=== PATIENT | female | born 1975 | race Caucasian/White ===

== ENCOUNTER → 2020-07-08 | Outpatient (CLI) | payer MEDICARE ==
[~2020-07-08] MED LIST: CATHETER FLUSH 10 ML SYR IV PRN; HOLD METFORMIN - RECEIVED CONTRAST 20 ML VIAL IV SCH; IOHEXOL 350 MG/ML 100 ML (OMNIPAQUE 350) VIAL IV ONE; NS 100 ML (IVPB) BAG IV ONE
--- NOTE | 2020-07-08 15:38 | Diagnostic Imaging Report ---
PROCEDURE: Pelvic comp/transvaginal sonogram. TECHNIQUE: Complete transabdominal and transvaginal pelvic ultrasound was performed. In addition, limited pelvic Doppler was performed. INDICATION: Pelvic pain. Uterus is anteverted measuring 8.1 x 4.4 x 4.8 cm. Endometrium is 4 mm in thickness. No myometrial mass is detected. The right ovary is surgically absent. Left ovary measures 3.1 x 1.5 x 2.0 cm. There is blood flow to the left ovary. No adnexal mass or free fluid is identified. IMPRESSION: Surgically absent right ovary. The study is otherwise unremarkable. Dictated by: Dictated on workstation # [id number]
--- NOTE | 2020-07-08 19:29 | Diagnostic Imaging Report ---
Procedure: CT pelvis with and without contrast. Technique: After oral contrast administration, imaging was obtained from the iliac crest to the lesser trochanters. Repeat imaging was performed after intravenous contrast administration. Auto Exposure Controls were utilized during the CT exam to meet ALARA standards for radiation dose reduction. Date: July 08, 2020. Indication: 45-year-old female, history of cervical cancer. Lower pelvic pain. Comparison: Ultrasound pelvis July 08, 2020. Findings: CT has limitations for evaluation of the cervix and uterus as well as the adnexa. There is no clearly identified concerning adnexal mass on CT. There are atherosclerotic calcifications noted. There is no identified abnormally enlarged lymph node in the pelvis which specifically meets CT size criteria for adenopathy. The visualized portions of the intestinal tract are not distended. The appendix is unremarkable. There is no free pelvic fluid or focal drainable fluid collection. There is no identified abnormal urinary bladder wall thickening or identified urothelial filling defect in the included field of view of imaging. There is no identified bone lesion suspicious for a metastatic lesion. There is no otherwise noted acute bony abnormality. Impression: 1. CT has limitations for assessment of the cervix and additional portions of the uterus. 2. No evidence of metastatic disease in the pelvis. 3. No identified adnexal mass or other pelvic mass or focal fluid collection. 4. There are atherosclerotic calcifications noted. 5. Additional CT assessment of the pelvis is grossly unremarkable. Dictated by: Dictated on workstation # [id number]
--- NOTE | 2020-07-09 18:39 | Diagnostic Imaging Report ---
INDICATION: Routine screening. COMPARISON is made with prior mammogram from 07/29/2019. 2-D and 3-D bilateral screening mammography was performed with CAD. Scattered fibroglandular densities are identified bilaterally. No mass or malignant appearing microcalcifications are seen. Axillae are unremarkable. IMPRESSION: BI-RADS Category 1. No mammographic features suspicious for malignancy are identified. ACR BI-RADS Category 1: Negative. Result letter will be mailed to the patient. Note: At least 10% of breast cancer is not imaged by mammography. Dictated by: Dictated on workstation # [id number]
== END ==
LOC: RAD 13:00
PROVIDERS: ATTEND Obstetrics & Gynecology
DX: Z12.31 Encounter for screening mammogram for malignant neoplasm of breast (principal); I70.8 Atherosclerosis of other arteries; R19.09 Other intra-abdominal and pelvic swelling, mass and lump; R10.2 Pelvic and perineal pain; Z85.41 Personal history of malignant neoplasm of cervix uteri; Z90.721 Acquired absence of ovaries, unilateral
CPT/HCPCS: 72194; 76830; 76856; 77063; 77067

== ENCOUNTER 2020-08-17 05:52 | Outpatient (CLI) | payer MEDICARE ==
[~2020-08-17] VITALS: Ht 160 cm; Wt 75.5 kg
[2020-08-18] MEDS ORDERED: FAMO10TA43 PO (11:34)
[2020-08-18] MEDS ORDERED: RT-ALBUINH IH (11:34)
[2020-08-18] MEDS ORDERED: FLUT1AER IH (11:34)
[2020-08-18] MEDS ORDERED: CETI10TA17 PO (11:34)
== END 2020-08-18 12:00 | disposition home or self-care (01) ==
LOC: PREOP 05:52
PROVIDERS: ATTEND Obstetrics & Gynecology
DX: Z01.818 Encounter for other preprocedural examination (principal)

== ENCOUNTER 2020-08-24 07:35 | Day surgery (SDC) | payer MEDICARE ==
[~2020-08-24] VITALS: Ht 160 cm; Wt 75.5 kg
[2020-08-24] VITALS (13 sets, daily range): BP systolic 63–128; BP diastolic 52–99
[~2020-08-24 07:35] MED LIST changes: -CATHETER FLUSH 10 ML SYR IV PRN; +CETI10TA17 PO; +FAMO10TA43 PO; +FLUT1AER IH; -HOLD METFORMIN - RECEIVED CONTRAST 20 ML VIAL IV SCH; -IOHEXOL 350 MG/ML 100 ML (OMNIPAQUE 350) VIAL IV ONE; -NS 100 ML (IVPB) BAG IV ONE; +RT-ALBUINH IH
[2020-08-24] MEDS ORDERED: LIDOCAINE/EPI 1%-1:100,000 (XYLOCAINE) 20ML ONE (07:56)
[2020-08-24 08:22] LABS: CLARITY,URINE CLOUDY; COLOR,URINE ORANGE; GLUCOSE, URINE (UA) NEGATIVE (NEGATIVE); KETONES,URINE TRACE (NEGATIVE); LEUKOCYTE ESTERASE ,URINE 2+ (NEGATIVE); NITRITE,URINE NEGATIVE (NEGATIVE); PH,URINE 5.5 (5-9); PROTEIN,URINE TRACE (NEGATIVE)
[2020-08-24 08:25] LABS: BASOPHILS # (AUTO) 0.1 10^3/uL (0.0-0.1); BASOPHILS % (AUTO) 1 % (0-10); EOSINOPHILS # (AUTO) 0.1 10^3/uL (0.0-0.3); EOSINOPHILS % (AUTO) 1 % (0-10); HEMATOCRIT 47 % (35-52); HEMOGLOBIN 16.2 g/dL (11.5-16.0); LYMPHOCYTES % (AUTO) 30 % (12-44); MEAN CORPUSCULAR HEMOGLOBIN 32 pg (25-34); MEAN CORPUSCULAR HGB CONC 34 g/dL (32-36); MEAN CORPUSCULAR VOLUME 95 fL (80-99); MEAN PLATELET VOLUME 10.3 fL (9.0-12.2); MONOCYTES # (AUTO) 0.8 10^3/uL (0.0-1.0); MONOCYTES % (AUTO) 6 % (0-12); NEUTROPHILS # (AUTO) 8.4 10^3/uL (1.8-7.8); NEUTROPHILS % (AUTO) 63 % (42-75); PLATELET COUNT 206 10^3/uL (130-400); WHITE BLOOD COUNT 13.4 10^3/uL (4.3-11.0)
[2020-08-24] MEDS ORDERED: WATER (STERILE) FOR INJECTION 10 ML ONE (08:29)
[2020-08-24] MEDS ORDERED: ceFAZolin INJECTION 1,000 MG ONE (08:29)
[2020-08-24 08:33] LABS: AMORPHOUS SEDIMENT,UR MOD AMOR URATES /LPF; BACTERIA,URINE LARGE /HPF; BILIRUBIN,URINE NEGATIVE (NEGATIVE); SQUAMOUS EPITHELIAL CELL,UR 25-50 /HPF
--- NOTE | 2020-08-24 09:01 | Progress Note-Pre Operative ---
Pre-Operative Progress Note H&P Reviewed The H&P was reviewed, patient examined and no changes noted. Date Seen by Provider: Aug 24, 2020 Time Seen by Provider: 09:00 Date H&P Reviewed: Aug 24, 2020 Time H&P Reviewed: 09:00 Pre-Operative Diagnosis: abnormal uterine bleeding, history of cervical stenosis and dysplasia STEFFANY ELMORE DO Aug 24, 2020 09:01
[2020-08-24] MEDS ORDERED: fentaNYL INJ 100 MCG/2 ML AMP ONE ×2 (09:12→11:13)
[2020-08-24] MEDS ORDERED: MIDAZOLAM 2 MG/2 ML (VERSED) VIAL ONE (09:12)
[2020-08-24] MEDS ORDERED: ceFAZolin INJECTION 1,000 MG in WATER (STERILE) FOR INJECTION 10 ML IV ONE (09:15)
[2020-08-24] MEDS ORDERED: ONDANSETRON 4 MG/2 ML (SDV) Z0FRAN ONE (09:29)
[2020-08-24] MEDS ORDERED: proPOfol 200 MG/20 ML (DIPRIVAN) VIAL IV ONE (09:29)
[2020-08-24] MEDS ORDERED: ROCURONIUM 10 MG/ML 5 ML SYRINGE IV ONE (09:29)
[2020-08-24] MEDS ORDERED: GLYCOPYRROLATE 0.2 MG/ML (ROBINUL) 2 ML VIAL ONE (09:34)
[2020-08-24] MEDS ORDERED: NEOSTIGMINE 3 MG/3 ML VIAL ONE (09:34)
[2020-08-24] MEDS ORDERED: LIDOCAINE PF 0.5% 50 ML (XYLOCAINE) VIAL ONE (09:34)
[2020-08-24] MEDS ORDERED: SEVOFLURANE (ULTANE) 15 ML INHAL SOLN ONE ×2 (09:34→10:52)
[2020-08-24] MEDS: LACTATED RINGERS 1,000 ML IV PRN ×3 (09:55→16:58)
--- NOTE | 2020-08-24 10:56 | Operative Report ---
Operative Report Date of Procedure/Surgery Aug 24, 2020 Surgeon (s) STEFFANY ELMORE DO Line Service Attendant (s): NA Post-Operative Diagnosis AUB, Left ovarian cysts Procedure Performed RaTH, left partial salpingectomy, left ovarian cystectomy Description of Procedure Anesthesia Type: General Estimated blood loss (mL): 50ml Specimen(s) collected/removed uterus, left partial tube, left ovarian cyst wall Description of the Procedure After informed consent was obtained, patient was taken into the operating room where general anesthetic was found to be adequate. She was prepped and draped in the usual sterile fashion in the dorsal lithotomy position. A Schwartz catheter was placed. A speculum was placed in the vagina. The cervix was visualized and the anterior lip was grasped with a sharp toothed tenaculum. The uterus was sounded and depth was approximately 8 centimeters. I placed the Kalli device (8 cm) and a 3.0 cm collar was advanced over the cervix. I inserted the Kalli without difficulty, inflating the balloon and securing it around the fornix of the cervix. The collar was then secured with sutures at 12 o'clock. Attention was then turned to the patient's abdomen. The skin was injected with 0.25% Marcaine. A supraumbilical incision was made about 8 mm in length. A Veress needle was inserted and I confirmed intraabdominal placement with a drop in pressure and the saline drop test. The opening pressure was 8 mmHg. I then insufflated the abdomen to a maximum of 15 mmHg with warmed CO2 gas. I placed an additional 8 mm trocar in the left abdomen lateral to the umbilicus approximately 15 cm lateral. The second robotic port was placed about 12 cm lateral to the right umbilical placement. This was an 8 mm trocar. These were placed under direct visualization of the laparoscope. 0.25% Marcaine was injected prior to placement of all trocars. When all placements were confirmed, the patient was placed in steep Trendelenburg allowing adequate visualization and the robot was brought in for docking. The docking was accomplished without difficulty. I then took over the command of the robot utilizing the vessel sealer and monopolar aileen. There was an absent right tube and ovary and evidence of partial removal of the left tube. I grasped the round ligaments bilaterally and cauterized with bipolar cautery and then cut with my aileen. I opted to do the hysterectomy and then the cystectomy. The ovary appeared otherwise normal but had two large cystic area with what appeared to be serous fluid. I grasped the partial left tube and clamped the mesosalpinx with the Vessel sealer. As the right tube and ovary had already been removed, I moved my dissection to the posterior leaves of the broad ligament. I dissected the posterior leaves of the broad ligament off the uterine arteries skeletonizing them bilaterally. I then took a second clamp with the bipolar cautery and with the aileen, transected the vessels away from the lateral aspect to the cervical stroma. I dissected the anterior peritoneum off the lower uterine segment. I continually pushed the bladder back and I took excessively great care to avoid bladder injury. I then dissected in a V fashion towards the midline between the uterosacral ligaments. This allowed me to skeletonize the uterine vessels bilaterally. The balloon on the KALLI was insufflated. This allowed me to see the KALLI circumferentially. I then performed a colpotomy anteriorly and then amputate with cervix away from the vaginal fornix. I then continued the colpotomy circumferentially. Once this was performed, the offset press assistant removed the uterus and partial left tube, through the vagina. She then left the a lap sponge in the vagina to maintain the pneumoperitoneum. I now performed two cystectomies on the left ovary with laparoscopic aileen. The cysts appeared functional The ovarian cysts were dissected away from the left ovary with the aileen. Once this was done, I passed the cyst wall tissue to the offset press assistant through the colpotomy incision and the lap sponge was replaced in the vagina to maintain the pneumoperitoneum I then began closure of the vaginal cuff. The uterus was left in the vagina to maintain pneumoperitoneum. I closed the apices of the vaginal cuff with 2-0 Vicryl V lock sutures with a colposuspension through the uterosacral ligaments. This suspended the apices of the vaginal cuff. I extended this to the midline from both sides and overlapped the V lock sutures in the midline. Excellent closure is noted and hemostasis is achieved. All the needles were removed from the patient's abdomen. Now, the robotic instruments were removed and the robot was docked back to laparoscopy. The pelvis was irrigated. There was no active bleeding noted. Bilateral ureters were able to be seen the entire time during the dissection and following the hysterectomy. There was good hemostasis. The trocars were removed under direct visualization. The laparoscopic sites were visualized and found to be hemostatic. The trocar sites were injected with 0.25% Marcaine. The skin incisions were closed with 4-0 Monocryl in a subcuticular fashion and then with Dermabond. Op sites were placed over the incision sites. The instruments were removed from the vagina and I noted there were no abrasions. Sponge, lap, needle and instrument counts correct times two. Patient was awakened and taken to recovery in a stable condition. Findings of the Procedure Enlarged boggy uterus with uterine fibroids, 2 left ovarian cysts, absent right tube and ovary, absent partial left tube Allergies and Home Medications Allergies Coded Allergies: Penicillins (Verified Allergy, Unknown, Rash, 08/18/20) acetaminophen (Verified Allergy, Unknown, Hives, red face, 08/18/20) codeine (Verified Allergy, Unknown, Hives, 08/18/20) oxycodone (Verified Allergy, Unknown, Hives, red face, 08/18/20) paroxetine (Verified Allergy, Unknown, Nausea, 08/18/20) promethazine (Verified Allergy, Unknown, muscle jerking, 08/18/20) Home Medications Acetaminophen 500 Mg Tablet, 1,000 MG PO Q8HR Prescribed by: STEFFANY ELMORE on 08/25/20 08 Albuterol Sulfate 1 Puff Puff, 2 PUFF IH Q4H PRN for WHEEZING, (Reported) 1 PUFF = 90 MCG Last Action: Reviewed Cetirizine HCl 10 Mg Tablet, 10 MG PO DAILY, (Reported) Last Action: Reviewed Docusate Sodium 100 Mg Capsule, 100 MG PO BID Prescribed by: STEFFANY ELMORE on 08/25/20 08 Famotidine 10 Mg Tablet, 10 MG PO DAILY, (Reported) Last Action: Reviewed Fluticasone/Vilanterol 1 Each Blst.w.dev, 1 EACH IH DAILY, (Reported) Last Action: Reviewed Hydromorphone HCl 2 Mg Tablet, 2 MG PO Q6H PRN for PAIN-SEVERE (8-10) Prescribed by: STEFFANY ELMORE on 08/25/20 08 Ibuprofen 600 Mg Tablet, 600 MG PO Q6H Prescribed by: STEFFANY ELMORE on 08/25/20 0805 Simethicone 80 Mg Tab.chew, 80 MG PO Q2HR PRN for gas Prescribed by: STEFFANY ELMORE on 08/25/20 0805 Patient Home Medication List Home Medication List Reviewed: STEFFANY Yancey DO Aug 24, 2020 10:56
[2020-08-24] MEDS ORDERED: PATIENT MAY USE OWN MEDS, ALL MC SCH (11:00)
[2020-08-24] MEDS ORDERED: BISACODYL 10 MG SUPP (DULCOLAX) PR PRN (11:00)
[2020-08-24] MEDS ORDERED: LACTATED RINGERS 1,000 ML IV SCH (11:00)
[2020-08-24] MEDS ORDERED: CHLORASEPTIC LOZENGE MM PRN (11:00)
[2020-08-24] MEDS ORDERED: SIMETHICONE 80 MG (MYLICON) CHEW PO PRN (11:00)
[2020-08-24] MEDS ORDERED: KETOROLAC 30 MG/ML VIAL IV SCH (11:00)
--- NOTE | 2020-08-24 11:12 | Anesthesia-General Post-Op ---
General Patient Condition Mental Status/LOC: Same as Preop Cardiovascular: Satisfactory Nausea/Vomiting: Absent Respiratory: Satisfactory Pain: Controlled Complications: Absent Post Op Complications Complications None Follow Up Care/Instructions Patient Instructions None needed. Anesthesia/Patient Condition Patient Condition Patient is doing well, no complaints, stable vital signs, no apparent adverse anesthesia problems. No complications reported per nursing. CHRISTI HA CRNA Aug 24, 2020 11:12
[2020-08-24] MEDS ORDERED: KETOROLAC 30 MG/ML VIAL ONE (11:13)
[2020-08-24] MEDS ORDERED: LACTATED RINGERS 1,000 ML IV ONE (11:13)
[2020-08-24] MEDS ORDERED: morphine INJ 10 MG/ML 1ML (SYR OR VIAL) ONE (11:13)
[2020-08-24] MEDS ORDERED: morphine INJ 10 MG/ML 1ML (SYR OR VIAL) IVP ONE (11:15)
[2020-08-24] MEDS ORDERED: ONDANSETRON 4 MG/2 ML (SDV) Z0FRAN IVP PRN (11:15)
[2020-08-24] MEDS ORDERED: fentaNYL INJ 100 MCG/2 ML AMP IVP ONE (11:15)
[2020-08-24] MEDS: morphine INJ 4 MG/ML 1 ML (VIAL/SYRINGE) IVP PRN ×2 (12:34→14:51)
[2020-08-24] MEDS ORDERED: ACETAMINOPHEN 500 MG TAB (TYLENOL) PO SCH (14:00)
[2020-08-24] MEDS: KETOROLAC 30 MG/ML VIAL IV SCH (17:01)
[2020-08-24] MEDS: HYDROmorphone (DILAUDID) 2 MG TAB PO PRN ×2 (19:09→23:04)
[2020-08-24] MEDS: DOCUSATE SODIUM 100 MG (COLACE) CAP PO SCH (20:30)
[2020-08-24] MEDS ORDERED: traZODone 50 MG (DESYREL) TAB PO SCH (21:00)
[2020-08-25] VITALS: BP 128/73
[2020-08-25] MEDS: KETOROLAC 30 MG/ML VIAL IV SCH ×2 (00:05→05:51)
[2020-08-25] MEDS: LACTATED RINGERS 1,000 ML IV PRN (01:55)
[2020-08-25 04:00] VITALS: BP 111/59
[2020-08-25] MEDS: HYDROmorphone (DILAUDID) 2 MG TAB PO PRN ×3 (04:01→12:52)
[2020-08-25] MEDS ORDERED: DCS100C PO (08:05)
[2020-08-25] MEDS ORDERED: HYDR2TAB6 PO (08:05)
[2020-08-25] MEDS ORDERED: SMT80CT PO (08:05)
[2020-08-25] MEDS ORDERED: ACET-93 PO (08:05)
[2020-08-25] MEDS ORDERED: IBUP-844 PO (08:05)
--- NOTE | 2020-08-25 08:07 | Discharge Inst-Women's Service ---
Discharge Inst-Women's Serv Depart Medication/Instructions New, Converted or Re-Newed RX: Other (transmitted and handwritted) Final Diagnosis abnormal uterine bleeding uterine fibroids ovarian cyst Problems Reviewed?: Yes Consults/Follow Up Additional Follow Up: Yes (1-2 weeks for incision check; 8-10 weeks for post op visit) Activity Activity: Activity as Tolerated Driving Instructions: No Driving for 1 Week NO SMOKING: NO SMOKING Nothing Inside Vagina: No Douching, No [place], No Tampons Other Activity nothing in the vagina until cleared by physician Diet Discharge Diet: No Restrictions Symptoms to Report to DrSneha: Bleeding Excessive, Pain Increased, Fever Over 101 Degrees F, Vaginal Bleeding Increase, Vaginal Discharge Foul For Any Problems or Questions: Contact Your Physician Skin/Wound Care Infection Signs and Symptoms: Increased Redness, Foul Odor of Wound, Increased Drainage, Skin Itchy or Has a Rash, Increased Swelling, Temperature Above 101 F Operative Area Clean and Dry: You May Remove Bandage (in 3 days, or if soiled/wet) Stitches/[place]/Dermabond: Dermabond Bathing Instructions: STEFFANY Smith DO Aug 25, 2020 08:07
[2020-08-25] MEDS: DOCUSATE SODIUM 100 MG (COLACE) CAP PO SCH (08:51)
[2020-08-25 09:25] VITALS: BP 133/70
--- NOTE | 2020-08-25 09:31 | Anesthesia-General Post-Op ---
General Patient Condition Mental Status/LOC: Same as Preop Cardiovascular: Satisfactory Nausea/Vomiting: Absent Respiratory: Satisfactory Pain: Controlled Complications: Absent Post Op Complications Complications None Follow Up Care/Instructions Patient Instructions None needed. Anesthesia/Patient Condition Patient Condition Patient is doing well, no complaints, stable vital signs, no apparent adverse anesthesia problems. No complications reported per nursing. ZUNILDA RED CRNA Aug 25, 2020 09:31
[2020-08-25] MEDS ORDERED: IBUPROFEN 600 MG (MOTRIN) TAB PO SCH (11:00)
[2020-08-25 12:54] VITALS: BP 123/68
== END 2020-08-25 14:00 | disposition home or self-care (01) ==
LOC: SDC 07:35 → WS 12:10 → SDC 08-25 14:00
PROVIDERS: ATTEND Obstetrics & Gynecology
DX: D25.1 Intramural leiomyoma of uterus (principal); N72 Inflammatory disease of cervix uteri; N83.02 Follicular cyst of left ovary; J44.9 Chronic obstructive pulmonary disease, unspecified; K21.9 Gastro-esophageal reflux disease without esophagitis; F17.210 Nicotine dependence, cigarettes, uncomplicated; Z85.41 Personal history of malignant neoplasm of cervix uteri; Z79.899 Other long term (current) drug therapy; Z98.890 Other specified postprocedural states; Z90.721 Acquired absence of ovaries, unilateral; Z87.42 Personal history of other diseases of the female genital tract; Z78.0 Asymptomatic menopausal state
CPT/HCPCS: 36415; 81000; 84703; 85025; 86850; 86900; 86901; 87081; 87088; 88307